=== PATIENT | female | born 1990 | race Caucasian/White ===

== ENCOUNTER 2020-05-03 18:41 | Emergency (ER) | payer BC, OTHER ==
[2020-05-03] MEDS ORDERED: Amoxicillin/Clavulanate K 875-125 MG Tab PO STA (18:54)
[2020-05-03] MEDS ORDERED: Lidocaine 2% Viscous Solution 15 ML Cup PO ONE (18:58)
--- NOTE | 2020-05-03 18:58 | EDM.PDOC ---
ED HPI GENERAL MEDICAL PROBLEM - General Chief Complaint: Laceration Stated Complaint: LACERATION TO FINGER Time Seen by Provider: 05/03/20 18:55 Source of Information: Reports: Patient History Limitations: Reports: No Limitations - History of Present Illness INITIAL COMMENTS - FREE TEXT/NARRATIVE: Patient got bitten by her dog on the ring index finger and left thumb. There is puncture wound that is small approximately 0.5 cm in size fingers Pain Score (Numeric/FACES): 6 - Related Data Allergies Allergy/AdvReac Type Severity Reaction Status Date / Time Latex, Natural Rubber Allergy Airway Verified 05/03/20 19:00 Tightness Home Meds: Home Meds Amoxicillin/Clavulanate K [Augmentin 875-125 MG] 1 tab PO BID #20 tab 05/03/20 [Rx] ED ROS GENERAL - Review of Systems Review Of Systems: See Below Constitutional: Reports: No Symptoms HEENT: Reports: No Symptoms Respiratory: Reports: No Symptoms Cardiovascular: Reports: No Symptoms Endocrine: Reports: No Symptoms GI/Abdominal: Reports: No Symptoms : Reports: Hematuria Musculoskeletal: Reports: No Symptoms Skin: Reports: Wound ED EXAM, SKIN/RASH Exam: See Below Exam Limited By: No Limitations General Appearance: Alert, No Apparent Distress Eye Exam: Bilateral Eye: PERRL Ears: Normal External Exam Nose: Normal Inspection Throat/Mouth: Normal Inspection, Normal Lips Head: Atraumatic Neck: Normal Inspection, Supple, Non-Tender, Full Range of Motion Respiratory/Chest: No Respiratory Distress, Lungs Clear, Normal Breath Sounds Cardiovascular: Normal Peripheral Pulses, Regular Rate, Rhythm, No Edema GI/Abdominal: Normal Bowel Sounds, Soft, Non-Tender Back Exam: Normal Inspection, Full Range of Motion Psychiatric: Normal Affect Skin: Warm, Wound/Incision (0.5 cm punture wound on the right index finger and left thumb) Course - Vital Signs Text/Narrative:: The wound doesn't need to be sutured because it's a puncture wound from a dog bite UTD with immunization and the dog is vaccinated LET applied on wound Augemntin 875 mg PO x1 Last Recorded V/S: Last Vital Signs Temp 36.7 C 05/03/20 18:51 Pulse 89 05/03/20 18:51 Resp 18 05/03/20 18:51 BP 141/84 H 05/03/20 18:51 Pulse Ox 100 05/03/20 18:51 - Orders/Labs/Meds Orders: Active Orders 24 hr Category Date Time Status Hand 2V Rt [CR] Stat Exams 05/03/20 18:59 Ordered Meds: Medications Discontinued Medications Generic Name Dose Route Start Last Admin Trade Name Maye PRN Reason Stop Dose Admin Amoxicillin/Clavulanate Potassium 1 tab 05/03/20 18:54 05/03/20 19:09 Augmentin 875 Mg/125 Mg PO 05/03/20 18:55 1 tab NOW STA Administration Lidocaine HCl 15 ml 05/03/20 18:58 05/03/20 19:08 Xylocaine 2% Viscous PO 05/03/20 18:59 15 ml ONETIME ONE Administration Departure - Departure Time of Disposition: 17:30 Disposition: Home, Self-Care 01 Condition: Good Clinical Impression: Dog bite, Puncture wound - Discharge Information Prescriptions: Amoxicillin/Clavulanate K [Augmentin 875-125 MG] 1 tab PO BID #20 tab Instructions: Animal Bite, Adult Referrals: Clementine Moncada, [employer] [Primary Care Provider] - Forms: ED Department Discharge Additional Instructions: Please read discharge instructions on dog bite Augmentin 875 mg Twice daily for 10 days Take ibuprofen 800 mg tylenol 1000 mg every 8 hours as needed forpain Follow up as needed Sepsis Event Note (ED) - Evaluation Sepsis Screening Result: No Definite Risk - Focused Exam Vital Signs: Vital Signs Temp Pulse Resp BP Pulse Ox 05/03/20 18:51 36.7 C 89 18 141/84 H 100 - My Orders Last 24 Hours: My Active Orders 05/03/20 18:59 Hand 2V Rt [CR] Stat - Assessment/Plan Last 24 Hours: My Active Orders 05/03/20 18:59 Hand 2V Rt [CR] Stat
== END 2020-05-03 19:50 | disposition home or self-care (01) ==
LOC: FB.ED 18:41
DX: S61.251A Open bite of left index finger without damage to nail, initial encounter (principal); S61.052A Open bite of left thumb without damage to nail, initial encounter; S61.255A Open bite of left ring finger without damage to nail, initial encounter; R31.9 Hematuria, unspecified; Z91.040 Latex allergy status; W54.0XXA Bitten by dog, initial encounter
CPT/HCPCS: 73140-F6; 99283; A9270-GY